=== PATIENT | male | born 1990 | race Caucasian/White ===

== ENCOUNTER 2016-10-16 07:08 | Emergency (ER) | payer MEDICAID ==
[~2016-10-16] VITALS: Ht 180.3 cm; Wt 83.9 kg
[2016-10-16 07:13] VITALS: BP 134/73; PULSE 79; RESP 16; TEMP 97; O2SAT 98
--- NOTE | 2016-10-16 07:15 | NUR ---
Patient to ER bed 6 to gown for evaluation. Side rails up. Report given to Suzy CALLAHAN.
--- NOTE | 2016-10-16 07:20 | NUR ---
Patient in stable condition, alert and oriented x4. States need colostomy bag changed, last time changed was 6 days ago. Colostomy bag to lower abdomen intact with brown/green loose stool noted, bag intact. Adhesive portion appears to be coming off. Slight redness noted to skin where adhesive was. No other complaints/injuries per patient or noted. 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
--- NOTE | 2016-10-16 07:20 | NUR ---
ER Dr. Syed at bedside examining patient.
--- NOTE | 2016-10-16 08:00 | NUR ---
Patient requested to change ostomy bag himself. Provided with supplies. Patient removed old ostomy bag, gently cleansed site with normal saline. Stoma site appears pink and intact, no signs of infection or skin breakdown noted. Patient applied sure prep around stoma site, applied Cohesive around site, cut stoma adhesive to size and applied. Bag properly applied, no leakage noted.
[2016-10-16 08:15] VITALS: BP 130/76; PULSE 80; RESP 18; TEMP 97.5; O2SAT 99
--- NOTE | 2016-10-16 08:15 | NUR ---
Patient given written and verbal discharge instructions and verbalizes understanding. ER MD discussed with patient the results and treatment provided.Patient in stable condition. ID arm band removed. Patient educated on pain management and to follow up with PMD in 1-2days. Pain Scale 0/10. Opportunity for questions provided and answered.
== END 2016-10-16 08:15 | disposition home or self-care (01) ==
LOC: SED 07:08
DX: Z43.3 Encounter for attention to colostomy (principal)
CPT/HCPCS: 99283

== ENCOUNTER 2019-06-05 14:55 | Emergency (ER) | payer MEDICAID ==
[~2019-06-05] VITALS: Ht 182.9 cm; Wt 83.9 kg
[2019-06-05 14:55] VITALS: BP_SYST 151
[2019-06-05 16:02] VITALS: BP_SYST 145
== END 2019-06-05 16:04 | disposition home or self-care (01) ==
LOC: SED 14:55
DX: S40.212A Abrasion of left shoulder, initial encounter (principal); R03.0 Elevated blood-pressure reading, without diagnosis of hypertension; Z85.038 Personal history of other malignant neoplasm of large intestine; V47.5XXA Car driver injured in collision with fixed or stationary object in traffic accident, initial encounter; Y93.89 Activity, other specified; Y92.89 Other specified places as the place of occurrence of the external cause; Y99.8 Other external cause status
CPT/HCPCS: 99283

== ENCOUNTER 2021-03-18 23:50 | Emergency (ER) | payer MEDICAID ==
[~2021-03-18] VITALS: Ht 182.9 cm; Wt 90.7 kg
[2021-03-19 00:38] VITALS: BP_SYST 138
[2021-03-19] MEDS ORDERED: DIPHENHYDRAMINE INJ 50 MG/ML VIAL IVP ONE (01:45)
[2021-03-19] MEDS ORDERED: MORPHINE 4 MG INJ. 4 MG/ML VIAL IVP ONE (01:45)
[2021-03-19 02:55] LABS: BASOPHILS % (AUTO) 0.6 % (0.0-2.0); EOSINOPHILS # (AUTO) 0.1 K/uL (0.0-0.4); EOSINOPHILS % (AUTO) 2.4 % (0.0-4.0); HEMATOCRIT 42.8 % (36-54); HEMOGLOBIN 14.7 g/dL (14.0-18.0); LYMPHOCYTES # (AUTO) 1.3 K/uL (1.0-5.5); LYMPHOCYTES % (AUTO) 26.8 % (20.5-51.5); MEAN CORPUSCULAR HEMOGLOBIN 31 pg (27-31); MEAN CORPUSCULAR HGB CONC 34 % (32-36); MEAN CORPUSCULAR VOLUME 90 fL (79.0-98.0); MONOCYTES # (AUTO) 0.4 K/uL (0.0-1.0); MONOCYTES % (AUTO) 9.2 % (1.7-9.3); NEUTROPHILS # (AUTO) 2.9 K/uL (1.8-7.7); PLATELET COUNT (AUTO) 308 K/uL (130-430); RED BLOOD CELL COUNT(AUTO) 4.73 MIL/uL (4.2-6.2); RED CELL DISTRIBUTION WIDTH 13.8 % (9.0-15.0); WHITE BLOOD COUNT (AUTO) 4.7 K/uL (4.8-10.8)
[2021-03-19 03:12] LABS: CREATININE 1.09 mg/dL (0.55-1.30); POTASSIUM 3.9 mmol/L (3.5-5.1)
[2021-03-19 03:17] LABS: ALBUMIN 3.5 g/dL (3.4-4.8); TOTAL BILIRUBIN 0.2 mg/dL (0.0-1.0)
[2021-03-19 03:54] VITALS: BP_SYST 138
== END 2021-03-19 03:54 | disposition home or self-care (01) ==
LOC: SED 23:50
DX: R10.32 Left lower quadrant pain (principal); Z87.19 Personal history of other diseases of the digestive system; Y04.0XXA Assault by unarmed brawl or fight, initial encounter; Y93.89 Activity, other specified; Y92.89 Other specified places as the place of occurrence of the external cause; Y99.8 Other external cause status
CPT/HCPCS: 36415; 74176; 76376; 80053; 85025; 96374; 96375; 99284; J1200; J2270